=== PATIENT | male | born 1950 | race Caucasian/White ===

== ENCOUNTER 2021-04-14 14:30 | Observation (INO) | payer MEDICARE, OTHER ==
[~2021-04-14] VITALS: Ht 182.9 cm; Wt 112.2 kg
[2021-04-14 15:33] LABS: HEMOGLOBIN 15.2 gm/dl (14.0-17.5); RED BLOOD COUNT 4.63 M/UL (4.20-5.50); WHITE BLOOD COUNT 9.3 K/UL (4.5-11.0)
[2021-04-14 15:48] LABS: BUN/CREATININE RATIO 25 (0-10)
[2021-04-14] MEDS ORDERED: ASPIRIN EC81 MG PO (20:53)
[2021-04-14] MEDS ORDERED: COZAAR 25MG TAB25 MG PO (20:54)
[2021-04-14] MEDS ORDERED: ATORVASTATIN CA40 MG PO (20:54)
[2021-04-14] MEDS ORDERED: FLOMAX 0.4 MG0.4 MG PO (20:55)
[2021-04-14] MEDS ORDERED: FINASTERIDE5 MG PO (20:55)
[2021-04-14] MEDS ORDERED: HYDROCHLOROTH12.5 M1 PO (20:55)
[2021-04-14] MEDS ORDERED: LOPRESSOR 25 MG25 MG PO (20:56)
[2021-04-14] MEDS ORDERED: OMEPRAZOLE20 MG PO (20:56)
[2021-04-14] MEDS ORDERED: LIQUITUSS200 MG/5 M PO (20:57)
[2021-04-14] MEDS ORDERED: FENOFIBRATE145 MG PO (20:58)
[2021-04-14] MEDS ORDERED: GLUCOPHAGE 500500 MG PO (20:58)
[2021-04-14] MEDS ORDERED: ACETAMINOPHEN-1 EAC1 PO (20:59)
[2021-04-15 06:53] LABS: HEMOGLOBIN 14.6 gm/dl (14.0-17.5); RED BLOOD COUNT 4.53 M/UL (4.20-5.50); WHITE BLOOD COUNT 9.6 K/UL (4.5-11.0)
[2021-04-15 07:23] LABS: BUN/CREATININE RATIO 27 (0-10)
[2021-04-15] MEDS ORDERED: PROTONIX20 MG PO (09:40)
[2021-04-15] MEDS ORDERED: PLAVIX 75 MG TA75 MG PO (09:40)
== END 2021-04-15 18:08 | disposition home or self-care (01) ==
LOC: ER1 14:30 → MED SURG 4 17:30 → CDU 17:30 → MED SURG 4 20:45
PROVIDERS: Emergency Medicine; Physician Assistant; ADMIT Internal Medicine
DX: G45.9 Transient cerebral ischemic attack, unspecified (principal); M47.812 Spondylosis without myelopathy or radiculopathy, cervical region; I11.9 Hypertensive heart disease without heart failure; E78.5 Hyperlipidemia, unspecified; I25.10 Atherosclerotic heart disease of native coronary artery without angina pectoris; M54.16 Radiculopathy, lumbar region; J44.9 Chronic obstructive pulmonary disease, unspecified; R53.1 Weakness; R29.6 Repeated falls; R94.31 Abnormal electrocardiogram [ECG] [EKG]; E11.9 Type 2 diabetes mellitus without complications; J32.0 Chronic maxillary sinusitis; K80.80 Other cholelithiasis without obstruction; G47.33 Obstructive sleep apnea (adult) (pediatric); E66.01 Morbid (severe) obesity due to excess calories; F17.210 Nicotine dependence, cigarettes, uncomplicated; Z79.82 Long term (current) use of aspirin; Z79.84 Long term (current) use of oral hypoglycemic drugs; Z79.899 Other long term (current) drug therapy; Z20.822 Contact with and (suspected) exposure to COVID-19; Z95.1 Presence of aortocoronary bypass graft; Z90.5 Acquired absence of kidney; Z90.79 Acquired absence of other genital organ(s); Z85.528 Personal history of other malignant neoplasm of kidney; Z85.46 Personal history of malignant neoplasm of prostate
CPT/HCPCS: ECHO; 36415; 70450; 70496; 70498; 70551; 71045; 72131; 72141; 72148; 80048; 80053; 82550; 82553; 82962; 83735; 83874; 84484; 85025; 85610; 85730; 93005; 93306; 96374; 97161; 97165; 99285; G0378; J2405; Q9965; Q9967; U0002

== ENCOUNTER → 2022-05-19 | Outpatient (CLI) | payer MEDICARE, OTHER ==
[~2022-05-19] MED LIST: ACETAMINOPHEN-1 EAC1 PO; ASPIRIN EC81 MG PO; ATORVASTATIN CA40 MG PO; COZAAR 25MG TAB25 MG PO; FENOFIBRATE145 MG PO; FINASTERIDE5 MG PO; FLOMAX 0.4 MG0.4 MG PO; GLUCOPHAGE 500500 MG PO; HYDROCHLOROTH12.5 M1 PO; LIQUITUSS200 MG/5 M PO; LOPRESSOR 25 MG25 MG PO; OMEPRAZOLE20 MG PO; PLAVIX 75 MG TA75 MG PO; PROTONIX20 MG PO
== END ==
LOC: KOH-I 10:47
DX: I71.4 Abdominal aortic aneurysm, without rupture (principal); F17.219 Nicotine dependence, cigarettes, with unspecified nicotine-induced disorders; I74.5 Embolism and thrombosis of iliac artery; I10 Essential (primary) hypertension; I73.9 Peripheral vascular disease, unspecified; K80.20 Calculus of gallbladder without cholecystitis without obstruction
CPT/HCPCS: 71250; 74176